=== PATIENT | male | born 1995 | race Caucasian/White ===

== ENCOUNTER 2022-01-06 15:37 | Emergency (ER) | payer MEDICAID ==
[~2022-01-06] VITALS: Ht 162.6 cm; Wt 72.6 kg
[2022-01-06 15:42] VITALS: BP 156/91
--- NOTE | 2022-01-06 16:02 | NUR ---
26/M BIB SELF WITH C/O INTERMITTENT EPISODES OF SHAKINESS AND NAUSEA X4 DAYS, WORSENING WHILE DRIVING TODAY. PATIENT STATES "I HAVE PAIN IN MY BODY" STATING HIS BOYFRIEND RECENTLY TESTED POSITIVE FOR HEPATITIS AND STATES "IM AFRAID I HAVE IT." MEDHX: DENIES ALLERGIES: NKA
--- NOTE | 2022-01-06 16:02 | NUR ---
DR BLAKE AT BEDSIDE EXAMINING PT
[2022-01-06] MEDS ORDERED: ACETAMINOPHEN EXTRA STRENGTH 500 MG TAB PO ONE (16:05)
--- NOTE | 2022-01-06 16:08 | NUR ---
XRAY AT BEDSIDE
--- NOTE | 2022-01-06 16:54 | NUR ---
LAB AT BEDSIDE
[2022-01-06 17:09] LABS: BASOPHILS # (AUTO) 0.1 K/uL (0.00-0.22); EOSINOPHILS % (AUTO) 0.6 % (0.0-4.0); HEMATOCRIT 43.6 % (36-52); HEMOGLOBIN 15.3 g/dL (12.0-18.0); LYMPHOCYTES # (AUTO) 1.7 K/uL (2.0-11.5); LYMPHOCYTES % (AUTO) 19.8 % (20.5-51.1); MEAN CORPUSCULAR HEMOGLOBIN 31 pg (27-31); MEAN CORPUSCULAR HGB CONC 35 g/dL (33-37); MEAN CORPUSCULAR VOLUME 88.2 fL (80-94); MONOCYTES # (AUTO) 0.6 K/uL (0.8-1.0); MONOCYTES % (AUTO) 6.9 % (1.7-9.3); NEUTROPHILS % (AUTO) 71.7 % (42.2-75.2); PLATELET COUNT (AUTO) 287 K/uL (140-450); RED BLOOD CELL COUNT(AUTO) 4.95 MIL/uL (4.20-6.10); RED CELL DISTRIBUTION WIDTH 13.2 % (11.6-13.7); WHITE BLOOD COUNT (AUTO) 8.4 K/uL (4.8-10.8)
[2022-01-06 17:24] LABS: ALBUMIN 4.4 g/dL (3.4-5.0); ANION GAP 10.5 (8-16); CARBON DIOXIDE 28.5 mmol/L (21-32); TOTAL BILIRUBIN 0.3 mg/dL (0.0-1.0)
[2022-01-06] MEDS ORDERED: KETOROLAC 30 MG/ML VIAL IM ONE (18:25)
[2022-01-06 18:34] VITALS: BP 144/85
--- NOTE | 2022-01-06 18:34 | NUR ---
Patient discharged with v/s stable. Written and verbal after care instructions given and explained. Patient alert, oriented and verbalized understanding of instructions. Ambulatory with steady gait. All questions addressed prior to discharge. ID band removed. Patient advised to follow up with PMD. Opportunity to ask questions provided and answered.
[2022-01-08 06:08] LABS: HEPATITIS A ANTIBODY IGM Negative (Negative); HEPATITIS B CORE AB TOTAL Negative (Negative); HEPATITIS B SURFACE ANTIBODY Reactive (.); HEPATITIS B SURFACE ANTIGEN Negative (Negative)
== END 2022-01-06 18:34 | disposition home or self-care (01) ==
LOC: MED 15:37
DX: B34.9 Viral infection, unspecified (principal); F17.210 Nicotine dependence, cigarettes, uncomplicated; F12.90 Cannabis use, unspecified, uncomplicated; Z71.6 Tobacco abuse counseling
CPT/HCPCS: 36415; 71045; 80053; 84484; 85025; 86703; 86704; 86706; 86708; 86709; 86803; 87340; 93005; 96372; 99285; J1885; Q0092; 99283